=== PATIENT | male | born 1960 | race Caucasian/White ===

== ENCOUNTER 2019-08-22 18:42 | Emergency (ER) | payer OTHER, SELFPAY ==
[2019-08-22 18:45] VITALS: BP 171/89; PULSE 84; RESP 22; TEMP 37.1; O2SAT 98
[2019-08-22] MEDS: SODIUM CHLORIDE 0.9% 1,000 ML 1000 ML IV (19:00)
[2019-08-22 19:08] LABS: Add Manual Diff / Slide Review NO; Basophils Absolute Auto 100 /uL (0-100); Basophils Percent Auto 0.8 % (0-2); Eosinophils Absolute Auto 200 /uL (0-450); Hematocrit 44.2 % (41-53); Hemoglobin 15.5 g/dL (13.5-17.5); Lymphocytes Absolute Auto 2500 /uL (1100-4500); Lymphocytes Percent Auto 32.1 % (25-40); Mean Corpuscular Hemoglobin 31.7 PG (26-34); Mean Corpuscular Volume 90.6 fL (80-100); Monocytes Absolute Auto 700 /uL (0-900); Monocytes Percent Auto 8.3 % (3-14); Neutrophils Absolute Auto 4500 /uL (1500-7000); Neutrophils Percent Auto 56.8 % (50-75); Platelet Count 249 X10^3/uL (150-400); Red Blood Cell Count 4.89 X10^6/uL (4.5-5.9); Red Cell Distribution Width 12.9 % (11.6-14.8); White Blood Cell Count 7.9 X10^3/uL (4.5-11.0)
[2019-08-22 19:19] LABS: Alanine Aminotransferase 32 IU/L (<50); Albumin 4.6 g/dL (3.5-5.0); Albumin Globulin Ratio 1.2 (1.0-2.8); Alkaline Phosphatase 90 U/L (38-126); Aspartate Aminotransferase 39 IU/L (17-59); BUN Creatinine Ratio 17.3 (6-22); Bilirubin Total 0.5 mg/dL (0.2-1.3); Blood Urea Nitrogen 22 mg/dL (9-20); Calcium 9.6 mg/dL (8.4-10.2); Carbon Dioxide 27 mmol/L (22-32); Chloride 103 mmol/L (98-107); Estimated Glomerular Filt Rate 58.5 mL/min (>60); Globulin 3.7 g/dL (1.7-4.1); Glucose 112 mg/dL (70-100); HEMOLYSIS 26 (0-50); Lipase 108 U/L (23-300); Potassium 4.4 mmol/L (3.4-5.1); Sodium 139 mmol/L (137-145); Total Protein 8.3 g/dL (6.3-8.2)
--- NOTE | 2019-08-22 19:31 | DI.CT.S_ITS ---
PROCEDURE: CT KIDNEY URETER BLADDER (KUB) INDICATIONS: R flank pain, hematuria TECHNIQUE: Noncontrast 5 mm thick sections acquired from the diaphragms to the symphysis. 5 mm thick coronal and sagittal reformats were then performed. For radiation dose reduction, the following was used: automated exposure control, adjustment of mA and/or kV according to patient size. COMPARISON: None. FINDINGS: Image quality: Excellent. Lung bases: Lung bases are clear. Heart size is normal. Urinary system: Both kidneys are normal in size. Obstructing calculus at the distal right ureter measuring 4 mm (2/75). Mild right hydroureteronephrosis. Bladder wall thickness is normal; no calcified bladder stones. Other solid organs: Liver is normal in size. A few small well circumscribed hypodensities which have the appearance of benign cyst or hemangioma. Gallbladder is decompressed. No calcified gallstones. Pancreas is normal in contours. Spleen is normal in size. No adrenal nodules. Peritoneum and bowel: Unenhanced bowel loops demonstrate normal wall thickness and caliber. Prominent stool in the rectum. No free fluid or air. Nodes and vessels: No retroperitoneal or mesenteric adenopathy by size criteria. Aorta and inferior vena cava are normal in caliber. Abdominal wall: No significant ventral hernias. Pelvis: No free pelvic fluid. No inguinal hernias or adenopathy. Bones: No suspicious bony lesions. No vertebral body compression fractures. IMPRESSION: 1. Obstructing distal right ureter calculus measuring 4 mm. Mild hydroureteronephrosis. 2. No additional kidney stones. Dictated by: Chetan Zee M.D. on 08/22/2019 at 20:29 Approved by: Chetan Zee M.D. on 08/22/2019 at 20:34
--- NOTE | 2019-08-22 19:43 | ED_ITS ---
HPI - Abdominal Pain <ISAK Rao - Last Filed: 08/22/19 20:59> General Chief Complaint: Abdominal Pain Stated Complaint: Kidney Pain Time Seen by Provider: 08/22/19 18:53 Source: patient Mode of arrival: Ambulatory Limitations: no limitations History of Present Illness HPI narrative: The patient is a 59-year-old male nonsmoker who denies pertinent medical history presents with a chief complaint of right flank pain radiating around to his right lower quadrant for the past few days. He states it started on Tuesday night. He states he started having hematuria today. He states over the past few days his urine has been darker than usual. He denies any fevers, does complain of nausea with vomiting twice. States that he denies any personal history of kidney stones, though endorses a positive family history including his brother. He denies any dysuria. He has not taken anything at home to feel better other than Tylenol. He does state that several days ago he some medics on [address] [place] who gave him a Toradol shot and that was very helpful. He has not followed up with primary care provider regarding this. The patient denies any surgical history and states he does not want any opiates or strong pain medicine. Related Data Home Medications Medication Instructions Recorded Confirmed aspirin [Adult Low Dose Aspirin] 81 mg PO DAILY 08/22/19 08/22/19 multivitamin 1 tab PO DAILY 08/22/19 08/22/19 Previous Rx's Medication Instructions Recorded ketorolac 10 mg PO TID PRN 5 Days #14 tab 08/22/19 ondansetron 4 mg PO Q6H PRN #20 tab 08/22/19 tamsulosin [Flomax] 0.4 mg PO DAILY #7 cap 08/22/19 Allergies Allergy/AdvReac Type Severity Reaction Status Date / Time No Known Drug Allergies Allergy Verified 08/22/19 20:23 Review of Systems <ISAK Rao - Last Filed: 08/22/19 20:59> Review of Systems Narrative: GENERAL: Denies chills, fatigue, malaise, fever, sweats. HEENT: Denies sinus pain, ear pain, sore throat, difficulty swallowing, dizziness. RESPIRATORY: Denies dyspnea, cough, wheezing, hemoptysis, sputum. CARDIOVASCULAR: Denies chest pain, palpitations, orthopnea, edema, GASTROINTESTINAL: See HPI : See HPI MUSCULOSKELETAL: denies weakness, joint pain, or bony pain SKIN: Denies rash, skin lesions, or other NEUROLOGIC: Denies weakness, headache, numbness, change in speech, confusion, seizures, incoordination. PSYCHIATRIC: No concerning psychosocial issues. 12 point review of systems is negative except for those stated above Exam <YOU Rao-BC - Last Filed: 08/22/19 20:59> Narrative Exam Narrative: GENERAL: This is a well-nourished, well-developed patient, appears uncomfortable HEAD: Atraumatic. Normocephalic. No temporal or scalp tenderness. EYES: Pupils equal round and reactive. Extraocular motions intact. No scleral icterus. No injection or drainage. ENT: Nose without bleeding, purulent drainage or septal hematoma. Throat without erythema, tonsillar hypertrophy or exudate. Uvula midline. Airway patent. NECK: Trachea midline. No JVD or lymphadenopathy. Supple, nontender, no meningeal signs. CARDIOVASCULAR: Regular rate and rhythm. RESPIRATORY: Clear to auscultation. Breath sounds equal bilaterally. No wheezes, rales, or rhonchi. No cough. No increased respiratory effort. No accessory muscle use. GASTROINTESTINAL: Abdomen soft, tenderness right lower quadrant palpation, nondistended. No hepato-splenomegaly, or palpable masses. No guarding. EXTREMITIES: No clubbing, cyanosis, or edema. No joint tenderness, effusion, or edema noted. BACK: Nontender without deformity or crepitance. No CVA tenderness bilaterally NEURO: AOx3. SKIN: No rash or erythema on visible skin Initial Vital Signs Initial Vital Signs: Vital Signs Temperature 98.7 F 08/22/19 18:45 Pulse Rate 84 08/22/19 18:45 Respiratory Rate 22 08/22/19 18:45 Blood Pressure 171/89 H 08/22/19 18:45 Pulse Oximetry 98 08/22/19 18:45 <Tye Carballo DO - Last Filed: 08/23/19 03:14> Initial Vital Signs Initial Vital Signs: Vital Signs Temperature 98.7 F 08/22/19 18:45 Pulse Rate 84 08/22/19 18:45 Respiratory Rate 22 08/22/19 18:45 Blood Pressure 171/89 H 05/27/20 18:45 Pulse Oximetry 98 08/22/19 18:45 Scores <Soraya BaiDOMINIKBC - Last Filed: 08/22/19 20:59> GCS [place] coma scale eye opening: Spontaneous Roberto coma scale verbal response: Orientated [place] coma scale motor response: Obey commands [place] coma scale total score: 15 Course <Soraya BaiDOMINIKBC - Last Filed: 08/22/19 20:59> Orders Ordered: ED Orders 08/22/19 19:00 Complete Blood Count AUTO DIFF Stat Comprehensive Metabolic Panel Stat Lipase Stat 08/22/19 19:31 CT kidney ureter bladder (KUB) Stat 08/22/19 20:05 Urine Microscopic Stat Discontinued Medications Sodium Chloride (Normal Saline 0.9%) 1,000 mls @ 150 mls/hr IV CONT FERMIN Last Admin: 08/22/19 19:13 Dose: Not Given Documented by: RSTONE Sodium Chloride (Normal Saline 0.9%) 1,000 mls @ 1,000 mls/hr IV BOLUS ONE Stop: 08/22/19 20:05 Last Infusion: 08/22/19 20:45 Dose: 1,000 mls/hr Documented by: Admin: 08/22/19 19:00 Dose: 1,000 mls/hr Documented by: MMCFARL Sodium Chloride (Normal Saline 0.9%) 1,000 mls @ 1,000 mls/hr IV BOLUS ONE Stop: 08/22/19 21:25 Last Admin: 08/22/19 20:47 Dose: Not Given Documented by: MMCFARL Ketorolac Tromethamine (Toradol) 30 mg IV NOW ONE Stop: 08/22/19 20:40 Last Admin: 08/22/19 20:47 Dose: Not Given Documented by: MMCFARL Ketorolac Tromethamine (Toradol 10mg Prepack) 1 bottle MISC SEEINSTR ONE Stop: 08/22/19 20:45 Last Admin: 08/22/19 20:47 Dose: 1 bottle Documented by: MMCFARL Ondansetron HCl (Zofran Odt Prepack) 1 bottle MISC SEEINSTR ONE Stop: 08/22/19 20:45 Last Admin: 08/22/19 20:46 Dose: 1 bottle Documented by: MMCFARL Tamsulosin HCl (Flomax) 0.4 mg PO NOW ONE Stop: 08/22/19 20:40 Last Admin: 08/22/19 20:46 Dose: 0.4 mg Documented by: MINI Vital Signs Vital signs: Vital Signs - 8 hr 08/22/19 20:21 Pulse Rate 80 Respiratory Rate 16 Blood Pressure [Right Arm] 147/80 H Pulse Oximetry 99 <Tye Carballo, DO - Last Filed: 08/23/19 03:14> Orders Ordered: ED Orders 08/22/19 19:00 Complete Blood Count AUTO DIFF Stat Comprehensive Metabolic Panel Stat Lipase Stat 08/22/19 19:31 CT kidney ureter bladder (KUB) Stat 08/22/19 20:05 Urine Microscopic Stat Discontinued Medications Sodium Chloride (Normal Saline 0.9%) 1,000 mls @ 150 mls/hr IV CONT FERMIN Last Admin: 08/22/19 19:13 Dose: Not Given Documented by: RSTONE Sodium Chloride (Normal Saline 0.9%) 1,000 mls @ 1,000 mls/hr IV BOLUS ONE Stop: 08/22/19 20:05 Last Infusion: 08/22/19 20:45 Dose: 1,000 mls/hr Documented by: Admin: 08/22/19 19:00 Dose: 1,000 mls/hr Documented by: MINI Sodium Chloride (Normal Saline 0.9%) 1,000 mls @ 1,000 mls/hr IV BOLUS ONE Stop: 08/22/19 21:25 Last Admin: 08/22/19 20:47 Dose: Not Given Documented by: MINI Ketorolac Tromethamine (Toradol) 30 mg IV NOW ONE Stop: 08/22/19 20:40 Last Admin: 08/22/19 20:47 Dose: Not Given Documented by: MINI Ketorolac Tromethamine (Toradol 10mg Prepack) 1 bottle MISC SEEINSTR ONE Stop: 08/22/19 20:45 Last Admin: 08/22/19 20:47 Dose: 1 bottle Documented by: MINI Ondansetron HCl (Zofran Odt Prepack) 1 bottle MISC SEEINSTR ONE Stop: 08/22/19 20:45 Last Admin: 08/22/19 20:46 Dose: 1 bottle Documented by: MINI Tamsulosin HCl (Flomax) 0.4 mg PO NOW ONE Stop: 08/22/19 20:40 Last Admin: 08/22/19 20:46 Dose: 0.4 mg Documented by: MINI Vital Signs Vital signs: Vital Signs - 8 hr 08/22/19 20:21 Pulse Rate 80 Respiratory Rate 16 Blood Pressure [Right Arm] 147/80 H Pulse Oximetry 99 MDM - Abdominal Pain <YOU Rao- - Last Filed: 08/22/19 20:59> Differential Diagnosis Differential diagnosis: Likely abdominal pain, calculus of kidney, constipation and other Lab Data Result diagrams: 08/22/19 19:00 08/22/19 19:00 Labs: Lab Results 08/22/19 08/22/19 08/22/19 Range/Units 19:00 19:00 20:05 WBC 7.9 (4.5-11.0) X10^3/uL RBC 4.89 (4.5-5.9) X10^6/uL Hgb 15.5 (13.5-17.5) g/dL Hct 44.2 (41-53) % MCV 90.6 (80-100) fL MCH 31.7 (26-34) PG MCHC 35.0 (30-36) % RDW 12.9 (11.6-14.8) % Plt Count 249 (150-400) X10^3/uL Neut % (Auto) 56.8 (50-75) % Lymph % (Auto) 32.1 (25-40) % [place] % (Auto) 8.3 (3-14) % Eos % (Auto) 2.0 (2-4) % Baso % (Auto) 0.8 (0-2) % Neut # (Auto) 4500 (4100-9076) /uL Lymph # (Auto) 2500 (7331-8197) /uL [place] # (Auto) 700 (0-900) /uL Eos # (Auto) 200 (0-450) /uL Baso # (Auto) 100 (0-100) /uL Sodium 139 (137-145) mmol/L Potassium 4.4 (3.4-5.1) mmol/L Chloride 103 (98-107) mmol/L Carbon Dioxide 27 (22-32) mmol/L BUN 22 H (9-20) mg/dL Creatinine 1.27 H (0.66-1.25) mg/dL Estimated GFR 58.5 L (>60) mL/min BUN/Creatinine Ratio 17.3 (6-22) Glucose 112 H (70-100) mg/dL Calcium 9.6 (8.4-10.2) mg/dL Total Bilirubin 0.5 (0.2-1.3) mg/dL AST 39 (17-59) IU/L ALT 32 (<50) IU/L Alkaline Phosphatase 90 (38-126) U/L Total Protein 8.3 H (6.3-8.2) g/dL Albumin 4.6 (3.5-5.0) g/dL Globulin 3.7 (1.7-4.1) g/dL Albumin/Globulin Ratio 1.2 (1.0-2.8) Lipase 108 (23-300) U/L Urine RBC 10-30/hpf H (0-5/HPF) Urine WBC None seen (0-5/HPF) Urine Bacteria None seen (None) Ur Culture Indicated? Cult not indicated Point of care testing: Urine Dip Bedside Urine Glucose Negative Bedside Urine Bilirubin - Negative Bedside Urine Ketone - Negative Urine Specific [place] 1.015 Bedside Urine Occult Blood +++ Bedside Urine pH 6.0 Bedside Urine Protein +/- 15 Bedside Urine Urobilinogen - Negative Bedside Urine Nitrite - Negative Bedside Urine Leukocytes - Negative Esterase Imaging Data CT scan - abdomen/pelvis: Radiologist's Impression: [address] [place] [address] CT Scan Report Signed Patient: Alberto Wells#: [id number] : 2Acct:[id number] Age/Sex: 59 / MDate of Service: 08/22/19 Loc: ED Accession Number: [id number] Procedure: CT kidney ureter bladder (KUB) Ordering Provider: Soraya Bai- PROCEDURE: CT KIDNEY URETER BLADDER (KUB) INDICATIONS: R flank pain, hematuria TECHNIQUE: Noncontrast 5 mm thick sections acquired from the diaphragms to the symphysis. 5 mm thick coronal and sagittal reformats were then performed. For radiation dose reduction, the following was used: automated exposure control, adjustment of mA and/or kV according to patient size. COMPARISON: None. FINDINGS: Image quality: Excellent. Lung bases: Lung bases are clear. Heart size is normal. Urinary system: Both kidneys are normal in size. Obstructing calculus at the distal right ureter measuring 4 mm (2/75). Mild right hydroureteronephrosis. Bladder wall thickness is normal; no calcified bladder stones. Other solid organs: Liver is normal in size. A few small well circumscribed hypodensities which have the appearance of benign cyst or hemangioma. Gallbladder is decompressed. No calcified gallstones. Pancreas is normal in contours. Spleen is normal in size. No adrenal nodules. Peritoneum and bowel: Unenhanced bowel loops demonstrate normal wall thickness and caliber. Prominent stool in the rectum. No free fluid or air. Nodes and vessels: No retroperitoneal or mesenteric adenopathy by size criteria. Aorta and inferior vena cava are normal in caliber. Abdominal wall: No significant ventral hernias. Pelvis: No free pelvic fluid. No inguinal hernias or adenopathy. Bones: No suspicious bony lesions. No vertebral body compression fractures. IMPRESSION: 1. Obstructing distal right ureter calculus measuring 4 mm. Mild hydroureteronephrosis. 2. No additional kidney stones. Dictated by: Chetan Zee M.D. on 08/22/2019 at 20:29 Approved by: Chetan Zee M.D. on 08/22/2019 at 20:34 MDM Narrative Medical decision making narrative: The patient is a 59-year-old male who presents with a chief complaint of right-sided flank pain radiating around to his right lower quadrant. He appears well, nontoxic, has no leukocytosis. He has hematuria. His history and exam correlate with kidney stone, so CT KUB was obtained which shows a 4 mm ureteral stone. He was placed on Flomax. Patient was given Toradol and Zofran. He does not want any stronger pain medicine and declines prescription narcotics. I discussed at length pushing fluids, straining his urine, following up with PCP in the next few days. Discussed the possibility of seeing a urologist if he does not pass the stone by himself. Discussed monitor for signs of infection such as dysuria, fever, inability keep down fluids. Patient has no questions or concerns upon discharge and states understanding of return precautions of any acute concerns as well as follow-up care. Again he declines any stronger pain medicine upon discharge. <Tye Carballo, - Last Filed: 08/23/19 03:14> Lab Data Labs: Lab Results 08/22/19 08/22/19 08/22/19 Range/Units 19:00 19:00 20:05 WBC 7.9 (4.5-11.0) X10^3/uL RBC 4.89 (4.5-5.9) X10^6/uL Hgb 15.5 (13.5-17.5) g/dL Hct 44.2 (41-53) % MCV 90.6 (80-100) fL MCH 31.7 (26-34) PG MCHC 35.0 (30-36) % RDW 12.9 (11.6-14.8) % Plt Count 249 (150-400) X10^3/uL Neut % (Auto) 56.8 (50-75) % Lymph % (Auto) 32.1 (25-40) % [place] % (Auto) 8.3 (3-14) % Eos % (Auto) 2.0 (2-4) % Baso % (Auto) 0.8 (0-2) % Neut # (Auto) 4500 (4953-3663) /uL Lymph # (Auto) 2500 (4124-7731) /uL [place] # (Auto) 700 (0-900) /uL Eos # (Auto) 200 (0-450) /uL Baso # (Auto) 100 (0-100) /uL Sodium 139 (137-145) mmol/L Potassium 4.4 (3.4-5.1) mmol/L Chloride 103 (98-107) mmol/L Carbon Dioxide 27 (22-32) mmol/L BUN 22 H (9-20) mg/dL Creatinine 1.27 H (0.66-1.25) mg/dL Estimated GFR 58.5 L (>60) mL/min BUN/Creatinine Ratio 17.3 (6-22) Glucose 112 H (70-100) mg/dL Calcium 9.6 (8.4-10.2) mg/dL Total Bilirubin 0.5 (0.2-1.3) mg/dL AST 39 (17-59) IU/L ALT 32 (<50) IU/L Alkaline Phosphatase 90 (38-126) U/L Total Protein 8.3 H (6.3-8.2) g/dL Albumin 4.6 (3.5-5.0) g/dL Globulin 3.7 (1.7-4.1) g/dL Albumin/Globulin Ratio 1.2 (1.0-2.8) Lipase 108 (23-300) U/L Urine RBC 10-30/hpf H (0-5/HPF) Urine WBC None seen (0-5/HPF) Urine Bacteria None seen (None) Ur Culture Indicated? Cult not indicated Point of care testing: Urine Dip Bedside Urine Glucose Negative Bedside Urine Bilirubin - Negative Bedside Urine Ketone - Negative Urine Specific [place] 1.015 Bedside Urine Occult Blood +++ Bedside Urine pH 6.0 Bedside Urine Protein +/- 15 Bedside Urine Urobilinogen - Negative Bedside Urine Nitrite - Negative Bedside Urine Leukocytes - Negative Esterase Discharge Plan Departure Patient Disposition: Home Clinical Impression: Right ureteral calculus Discharge Date/Time: 08/22/19 20:48 Instructions: Kidney Stones (Alternative Therapy), Kidney Stones -- Adult, DI for Kidney Stones Activity Restrictions/Additional Instructions: Thank you for trusting us with your care today As I discussed, there is a 4 mm stone in your right ureter Please follow-up with primary care provider, push fluids, strain your urine I have given you a prescription of Toradol. This is an NSAID. Do not combine it with other NSAIDs such as Aleve or ibuprofen. I suggest taking it with some food, as it can irritate your stomach. I also sent in a prescription of Zofran for nausea as well as Flomax to help you pass the stone Please come back to the emergency department for any acute concerns such as inability to pass urine, inability keep down fluids Please monitor for signs of infection such as burning with urination Prescriptions: New tamsulosin [Flomax] 0.4 mg capsule 0.4 mg PO DAILY Qty: 7 RF: 0 ketorolac 10 mg tablet 10 mg PO TID PRN (Reason: pain) 5 Days Qty: 14 RF: 0 ondansetron 4 mg tablet,disintegrating 4 mg PO Q6H PRN (Reason: nausea and vomiting) Qty: 20 RF: 0 No Action multivitamin Tablet 1 tab PO DAILY RF: 0 aspirin [Adult Low Dose Aspirin] 81 mg Tablet,Delayed Release (Dr/Ec) 81 mg PO DAILY RF: 0 Referrals: Ja Damico MD [Primary Care Provider] - <Tye Carballo DO - Last Filed: 08/23/19 03:14> Cosign ED Attending Cosignature Attestation: I was immediately available in the department for consultation. This documentation has been reviewed and I agree with assessment and plan. Supervised by Tye Carballo DO
[2019-08-22 20:20] LABS: Bacteria Urine None Seen; WBC Urine None Seen (0-5/HPF)
[2019-08-22 20:21] VITALS: BP 147/80; PULSE 80; RESP 16; O2SAT 99
[2019-08-22 20:24] LABS: Culture Indicated Urine Cult Not Indicated; RBC Urine 10-30/HPF (0-5/HPF)
[2019-08-22] MEDS: ONDANSETRON 4 MG ODT PREPACK 1 BOTTLE MISC (20:46)
[2019-08-22] MEDS: TAMSULOSIN 0.4 MG CAPSULE PO (20:46)
[2019-08-22] MEDS: KETOROLAC 10MG PREPACK 1 BOTTLE MISC (20:47)
== END 2019-08-22 20:48 | disposition home or self-care (01) ==
PROVIDERS: Emergency Provider Nurse Practitioner Family; PCP Family Medicine
DX: N20.0 Calculus of kidney (principal)
CPT/HCPCS: 36415; 74176; 80053; 81003; 81015; 83690; 85025; 96360; 96361; 99284

== ENCOUNTER → 2023-08-10 14:26 | Outpatient (CLI) | payer SELFPAY | PROVIDERS: PCP Family Medicine; Visit Provider Physician Assistant | DX: M71.062 Abscess of bursa, left knee (principal) | CPT/HCPCS: 87070; 87075; 87205 ==